=== PATIENT | male | born 1990 | race African-American/Black ===

== ENCOUNTER 2025-05-13 22:29 | Emergency (ER) | payer OTHER ==
[~2025-05-13] VITALS: Ht 185.4 cm; Wt 91.0 kg
[2025-05-13] MEDS: ALBUTEROL (0.083%) 2.5MG/3ML NEB HHN ONE (01:01)
[2025-05-13 23:42] LABS: BASOPHILS % 0.7 % (0.0-2.0); EOSINOPHILS % 8.0 % (0.0-5.0); HEMATOCRIT. 47.3 % (42.0-52.0); HEMOGLOBIN. 15.6 g/dL (14.0-18.0); LYMPHOCYTES % 34.0 % (20.0-50.0); MEAN PLATELET VOLUME 9.2 fl (7.4-10.4); MONOCYTES % 10.1 % (2.0-8.0); NEUTROPHILS % 47.2 % (40.0-76.0); PLATELET 291 x1000/uL (130-400); RED BLOOD CELL COUNT 5.71 mill/uL (4.7-6.1); RED CELL DISTRIBUTION WIDTH 13.3 % (11.6-14.6)
[2025-05-13 23:50] LABS: CREATININE 1.1 mg/dL (0.6-1.3); UREA NITROGEN BLOOD 15 mg/dL (9-23)
[2025-05-13 23:51] LABS: ETHANOL BLOOD < 10 mg/dL (<10); TROPONIN I HIGH SENSITIVITY 5 ng/L (3.0-53)
[2025-05-14] MEDS: PREDNISONE 20MG TABLET PO NR (00:10)
[2025-05-14 01:01] VITALS: PULSE 70; RESP 20; O2SAT 98
[2025-05-14] MEDS: IPRATROPIUM BROMIDE (0.02%) 0.5MG/2.5ML NEB HHN ONE (01:01)
[2025-05-14] MEDS ORDERED: P20 MT (01:18)
[2025-05-14] MEDS ORDERED: ALBU90AE INH (01:18)
[2025-05-14 01:23] VITALS: BP 138/79; PULSE 68; RESP 15; TEMP 36.5; O2SAT 98
== END 2025-05-14 01:56 | disposition home or self-care (01) ==
LOC: ER 22:29
DX: J40 Bronchitis, not specified as acute or chronic (principal); I10 Essential (primary) hypertension; F17.210 Nicotine dependence, cigarettes, uncomplicated
CPT/HCPCS: 80048; 80320; 83880; 85025; 84484; 36415; 71045; 93005; 99285; 94640; J7512; Z7610; G0480